=== PATIENT | female | born 1990 | race Two or more races ===

== ENCOUNTER 2024-06-30 10:46 | Inpatient (IN) | payer MEDICAID, SELFPAY ==
[2024-06-30] VITALS (14 sets, daily range): BP systolic 100–129; BP diastolic 55–79; PULSE 77–98; RESP 14–21; TEMP 36.3–37.3; O2SAT 95–100; BMI 34.4
--- NOTE | 2024-06-30 01:27 | PD.LDHP ---
Documentation for date of: 06/30/24 OB Labor/Induct. HPI History of Present Illness : 5 Para: 4 History of sections: Yes (x4) HEMANT: 07/07/24 History of present illness: 33-year-old -0-0-4 at 39 weeks and 0 days, HEMANT 07/07/2024 presents for her scheduled repeat low-transverse section. Patient's current is significant for history of 4 previous sections. Her last delivery was complicated by significant intraperitoneal adhesions with challenging delivery Patient denies any contractions or leakage of fluid and reports good movements Review of Systems Review of Systems Systems Reviewed: All systems reviewed, normal except as documented Past Medical History Surgical History SURGICAL: Positive Section (x4) Meds Home Medications and Allergies Home Medications ?Medication ?Instructions ?Recorded ?Confirmed ?Type ferrous sulfate 325 mg (65 mg 325 mg PO BIDWM #0 tabs 08/07/16 04/09/21 History iron) tablet (Feosol) prenat.vits,maxim,cvq-vyeh-cfrtu 1 tab PO QDAY 04/09/21 04/09/21 History Allergies Allergy/AdvReac Type Severity Reaction Status Date / Time No Known Allergies Allergy Unverified 04/09/21 07:28 OB Exam Constitutional Constitutional: no acute distress Routine HEENT Exam Head: Present normocephalic and atraumatic Eye: Present EOMI and PERRL ENT: Present mucous membranes moist Routine Neck Exam Neck: Present supple and trachea midline Routine Cardiovascular Exam Cardiovascular: Present RRR Routine Abdominal Exam Abdominal: Present soft and normoactive bowel sounds Detailed Labor and Delivery Exam Dilation (cm): 0 Baseline heart rate: 140 monitor accelerations: 15x15 monitor decelerations: None Routine Extremities Exam Extremities: Present full ROM Routine Skin Exam Skin: Present intact, dry and warm Routine Neurological Exam Neurological: Present alert, oriented X3 and CN II-XII intact Routine Psychiatric Exam Psychiatric: Present normal affect and normal thought process OB Assessment & Plan Assessment and Plan (1) Previous delivery affecting : Status: Acute Assessment and plan: Admit to inpatient status for repeat low transverse IV access, CBC, type and cross 2 units, LR at 125, RPR, COVID-19 test GBS negative Ancef 2 g prior to surgery start Potts catheter to drainage SCDs for DVT prophylaxis Anesthesia to preop for spinal anesthesia Scheduled for surgery.
[2024-06-30] MEDS: ceFAZolin/D5W 2 GM IV 2 GM/100 ML BAG IV (12:03)
[2024-06-30] MEDS: RINGERS LACTATED 1000 ML 1,000 ML 100 ML IV (12:03)
[2024-06-30] MEDS: FAMOTIDINE INJ 10 MG/ML VIAL 2 ML 20 MG IV (12:03)
[2024-06-30] MEDS: METOCLOPRAMIDE INJ 5 MG/ML VIAL 2 ML 10 MG IVP (12:06)
[2024-06-30 12:58] LABS: Basophils % (Auto) 0 % (0-2.5); Eosinophils # (Auto) 0.1 Thou/mm3 (0.0-0.5); Eosinophils % (Auto) 1 % (0-10); Hematocrit 35.2 % (36.0-46.0); Hemoglobin 11.8 g/dL (12.0-16.0); Immature Granulocytes % (Auto) 1 % (0-0); Lymphocytes # (Auto) 1.4 Thou/mm3 (1.0-4.8); Lymphocytes % (Auto) 15 % (10-50); Mean Corpuscular HGB Conc 33.5 g/dl (31.0-37.0); Mean Corpuscular Hemoglobin 29.1 pg (25.0-35.0); Mean Corpuscular Volume 87 fL (80-100); Monocytes # (Auto) 0.6 Thou/mm3 (0.0-0.8); Monocytes % (Auto) 6 % (0-12); Neutrophils # (Auto) 7.4 Thou/mm3 (1.8-7.7); Neutrophils % (Auto) 77 % (37-80); Nucleated Red Blood Cell % 0 /100 WBC (0); Platelet Count 288 Thou/mm3 (140-440); RDW Standard Deviation 43.6 fL (36.4-46.3); Red Blood Count 4.05 Miln/mm3 (4.00-5.20); White Blood Count 9.6 Thou/mm3 (3.6-11.0)
[2024-06-30 13:43] LABS: Syphilis Nonreactive (Nonreactive)
--- NOTE | 2024-06-30 14:11 | ESOP_ITS ---
Operative Note - QUALITY CONTROL COORDINATOR Procedure Date of procedure: 06/30/24 Procedure Performed: Repeat low-transverse section with bilateral salpingectomy Indication: 33-year-old G6, P5 with previous x 5 Anesthesia type: Spinal Procedure description: Informed consent was obtained and the patient was taken to the operating room. Identity was confirmed by double identifiers and she was placed on the operating table. Spinal anesthesia was administered and she was positioned in the supine position. The abdomen and perineum were prepped in the usual sterile fashion and a Potts catheter was placed to continuous drainage. Sterile drapes were applied. The incision site was tested for adequacy of anesthesia. A Pfannenstiel skin incision was made with a scalpel and all scar tissue was excised including a band of about 2 cm of skin that included old scars, the incision was now carried to the subcutaneous fat up to the rectus fascia. The rectus fascia was incised on either side of the midline and the incisions were extended bilaterally. The fascia was gently dissected off the ventral surface of the rectus muscle both superiorly and inferiorly. The rectus bellies were gently in the midline and the peritoneum was identified and entered bluntly using the surgeon's finger. Once entry was accomplished multiple bands of agitation were noted both superiorly as well as inferiorly at the bladder reflection. A combination of sharp dissection electrocautery and blunt dissection was used to carefully lysed the scar tissue and create adequate opening to access the anterior surface of the uterus. The peritoneum was now carefully identified and the peritoneal opening was now stretched to create an adequate opening for access to the uterus. Manuel O-ring retractor was placed for adequate visualization. The anterior surface of the uterus was palpated. The bladder reflection was identified and a Mandeep Layne low transverse uterine incision was made in the lower uterine segment taking care to avoid the bladder. Uterine entry was accomplished bluntly and the opening was stretched to create adequate room. The amniotic membranes were now ruptured and clear amniotic fluid was released. The fetus was noted to be in the vertex position. The head was gently elevated out of the maternal pelvis and single loop of nuchal cord was found around the neck. The cord was released and the rest of the shoulders and body were delivered by gentle fundal pressure. Umbilical cord was doubly clamped, divided and the infant was handed over to the waiting team. Cord gas samples were obtained. The placenta was delivered by gentle traction on the umbilical cord. The interior of the uterus was now thoroughly cleaned of all blood and debris and membranes. The hysterotomy angles were grasped by a pair of Allis clamps and the hysterotomy was closed using 1 Monocryl suture in 2 layers. The first layer was used to approximate the muscle in a running locked fashion, the second layer was used to approximate the thickness of the myometrium and uterine serosa in an imbricated manner. Once the repair was completed the hysterotomy was inspected and noted to be adequately hemostatic. Attention was now turned to the right fallopian tube. Allis clamp was used to grasp the tube and a salpingectomy was performed using the Enseal device. The salpingectomy dissection line was inspected and noted to be hemostatic. The same procedure was repeated on the contralateral side. The hysterotomy was once again inspected and hemostasis was noted to be satisfactory. The Manuel retractor was now removed. The peritoneal edges were re approximated. The rectus muscles were re approximated. The rectus fascia was now repaired using PDS strata fix l suture in a running fashion. The subcutaneous layer was now copiously irrigated using warm normal saline. All bleeding points were cauterized using the Bovie. The subcutaneous fat was closed using 3-0 Vicryl. The skin was closed using hussain. The skin was cleaned and a sterile dressing was applied. The patient was now undraped, the abdomen and back were thoroughly cleaned and she was not transferred to the recovery room in a stable and awake condition. The patient tolerated the entire procedure well. No complications were encountered. All instrument, sponge and lap counts were correct x2. Estimated blood loss (ml): 800 Complications: none Surgical staff Operation Date: 06/30/24 12:45 Case Staff HYDROCRANE OPERATOR: Miguel Solo RN First Assistant: Heidy Peraza Diagnosis Discharge Diagnosis (1) Previous delivery affecting : Status: Acute (2) Abdominal adhesions: Status: Acute Problem List Completed Was Problem List Reviewed/Reconciled?: Yes
--- NOTE | 2024-06-30 14:16 | OBDSUM_ITS ---
Data (Montiel) Data Hx Section: Yes : 6 Para: 5 Term: 5 : 0 : 0 Delivery Data (Montiel) Labor Data ROM Date: 06/30/24 ROM Time: 13:38 Rupture Type: AROM Amniotic Fluid: Thin Meconium Delivery Data Labor Onset Stage 1 Date: 06/30/24 Labor Onset Stage 1 Time: 13:38 Labor Onset Stage 2 Date: 06/30/24 Labor Onset Stage 2 Time: 13:38 Delivery Date: 06/30/24 Delivery Time: 13:38 Placenta Delivery Date: 06/30/24 Placenta Delivery Time: 13:38 Delivered by: Dayton Coleman Delivery nurse: Sasha Knox Other staff at delivery: Baby Care/Family And Divorce Legal Assistant Other staff at delivery: Tourist Information Officer Other staff at delivery: RT Other staff at delivery: Scrub Other staff at delivery: Tamanna Thomas Other staff at delivery: Heidy Peraza Other staff at delivery: cielo Other staff at delivery: caroandrea Delivery Method Delivery: Delivery Type: Repeat Anesthesia Type Primary Anesthesia: Spinal Data (Montiel) [place] Data Infant Gender: Male Infant Weight Grams: 3725 1 Minute Total: 8 5 Minute Total: 9
[2024-06-30] MEDS: HYDROmorphone INJ 2 MG/ML VIAL 0.4 MG IV (15:17)
[2024-06-30] MEDS: ACETAMINOPHEN IVPB 1,000 MG/100 ML VIAL 250 MG IV (15:18)
[2024-06-30] MEDS: OXYTOCIN in NS 20 units 20 UNIT/1,000 ML BAG 125 UNIT IV (16:52)
[2024-06-30] MEDS: KETOROLAC INJ 30 MG/ML VIAL IVP (19:22)
[2024-07-01] MEDS: ACETAMINOPHEN IVPB 1,000 MG/100 ML VIAL 250 MG IV ×2 (01:13→07:32)
[2024-07-01] MEDS: KETOROLAC INJ 30 MG/ML VIAL IVP (01:58)
[2024-07-01 03:00] VITALS: BP 105/66; PULSE 91; RESP 18; TEMP 37.2; O2SAT 97
[2024-07-01 03:32] LABS: Basophils % (Auto) 0 % (0-2.5); Eosinophils # (Auto) 0.1 Thou/mm3 (0.0-0.5); Eosinophils % (Auto) 1 % (0-10); Hematocrit 31.8 % (36.0-46.0); Hemoglobin 10.7 g/dL (12.0-16.0); Immature Granulocytes % (Auto) 1 % (0-0); Immature Granulocytes Auto 0.07 Thou/mm3 (0.00-0.00); Lymphocytes # (Auto) 1.2 Thou/mm3 (1.0-4.8); Lymphocytes % (Auto) 12 % (10-50); Mean Corpuscular HGB Conc 33.6 g/dl (31.0-37.0); Mean Corpuscular Hemoglobin 29.1 pg (25.0-35.0); Mean Corpuscular Volume 86 fL (80-100); Monocytes # (Auto) 0.7 Thou/mm3 (0.0-0.8); Monocytes % (Auto) 7 % (0-12); Neutrophils # (Auto) 8.5 Thou/mm3 (1.8-7.7); Neutrophils % (Auto) 80 % (37-80); Nucleated Red Blood Cell % 0 /100 WBC (0); Platelet Count 264 Thou/mm3 (140-440); RDW Standard Deviation 43.2 fL (36.4-46.3); Red Blood Count 3.68 Miln/mm3 (4.00-5.20); White Blood Count 10.7 Thou/mm3 (3.6-11.0)
[2024-07-01] MEDS: RINGERS LACTATED 1000 ML 1,000 ML 125 ML IV (04:20)
[2024-07-01 08:50] VITALS: BP 100/64; PULSE 90; RESP 17; TEMP 36.4; O2SAT 96
[2024-07-01] MEDS: DOCUSATE SOD 100 MG CAPSULE PO (09:34)
--- NOTE | 2024-07-01 10:05 | PD.LDPPPRG ---
Subjective Subjective Interval history: POD#1 doing well passed gas ambulating no dizziness minimal vaginal bleeding trying to breast feed pain managed appropriately Exam Vital Signs Temp Pulse Resp BP Pulse Ox O2 Del Method 98.4 F 98 17 100/70 96 Room Air 07/01/24 12:08 07/01/24 12:08 07/01/24 12:08 07/01/24 12:08 07/01/24 12:08 07/01/24 12:08 Narrative Exam typical post op exam Incision C.D and intact appropriate tenderness passing gas, just started has some pain on R side but abdomen is soft and without any rebound or rigidity minimal vaginal bleeding Constitutional Constitutional: no acute distress Routine HEENT Exam Head: Present normocephalic and atraumatic Eye: Present EOMI and PERRL ENT: Present mucous membranes moist Routine Neck Exam Neck: Present supple and trachea midline Routine Respiratory Exam Respiratory: Present chest non-tender, lungs clear, normal breath sounds and no resp distress Routine Cardiovascular Exam Cardiovascular: Present RRR Routine Abdominal Exam Abdominal: Present soft and normoactive bowel sounds Comments: Incision, C,D and intact with appropriate tenderness no fundal tenderness Routine Extremities Exam Extremities: Present full ROM Comments: no calf tenderness Routine Skin Exam Skin: Present intact, dry and warm Routine Neurological Exam Neurological: Present alert, oriented X3 and CN II-XII intact Routine Psychiatric Exam Psychiatric: Present normal affect and normal thought process Objective Labs 07/01/24 03:10 Labs: Laboratory Results - last 24 hr 07/01/24 03:10 WBC 10.7 RBC 3.68 L Hgb 10.7 L Hct 31.8 L MCV 86 MCH 29.1 MCHC 33.6 RDW Std Deviation 43.2 Plt Count 264 Neut % (Auto) 80 Lymph % (Auto) 12 [place] % (Auto) 7 Eos % (Auto) 1 Baso % (Auto) 0 Neut # (Auto) 8.5 H Lymph # (Auto) 1.2 [place] # (Auto) 0.7 Eos # (Auto) 0.1 Baso # (Auto) 0.0 Immature Gran # (Auto) 0.07 H Absolute Nucleated RBC 0.00 Immature Gran % 1 H Nucleated RBC % 0 Impressions Impression: POD #1 , doing well anticipate discharge in am advance diet as tolerated Assessment & Plan Problem List (1) Previous delivery affecting : Status: Acute Assessment and plan: routine care advance diet and possible discharge tomorrow (2) Abdominal adhesions: Status: Acute Assessment and plan: routine post op care Time Spent With Patient Time: Total time spent is greater than 50% in coordination of care (as documented) at patient's floor/unit and/or counseling patient: Time with patient: 25 - 35 minutes
[2024-07-01 12:08] VITALS: BP 100/70; PULSE 98; RESP 17; TEMP 36.9; O2SAT 96
[2024-07-01] MEDS: HYDROcodone/APAP 5/325 TABLET 2 TAB PO (12:25)
[2024-07-01] MEDS: SIMETHICONE 80 MG CHEW PO ×2 (13:48→20:14)
[2024-07-01] MEDS: IBUPROFEN TAB 400 MG TABLET 800 MG PO (17:47)
[2024-07-01 20:10] VITALS: BP 104/63; PULSE 84; RESP 20; TEMP 36.7; O2SAT 97
[2024-07-01] MEDS: Milk Of Magnesia Susp 30 ML UDC PO (20:14)
[2024-07-02] MEDS: HYDROcodone/APAP 5/325 TABLET 2 TAB PO (01:30)
[2024-07-02 05:36] VITALS: BP 109/68; PULSE 83; RESP 18; TEMP 36.8; O2SAT 96
[2024-07-02] MEDS: IBUPROFEN TAB 400 MG TABLET 800 MG PO (05:49)
[2024-07-02 07:41] VITALS: BP 96/59; PULSE 84; RESP 17; TEMP 37.1
[2024-07-02] MEDS: SIMETHICONE 80 MG CHEW PO (08:21)
[2024-07-02] MEDS: HYDROcodone/APAP 5/325 TABLET 1 TAB PO (08:21)
[2024-07-02] MEDS: DOCUSATE SOD 100 MG CAPSULE PO (08:21)
--- NOTE | 2024-07-02 09:30 | PD.LDPPPRG ---
Subjective Subjective Interval history: Delivery type: Patient doing well this morning. No acute complaints. Ambulating, tolerating p.o. and voiding without difficulty. HTN/Pre-Eclampsia screen: No chest pain, shortness of breath, headache, visual changes, epigastric or right upper quadrant pain. Breast-feeding, lochia diminishing. Bowel: Flatus+/ BM+ Exam Vital Signs Temp Pulse Resp BP Pulse Ox O2 Del Method 98.7 F 84 17 96/59 L 96 Room Air 07/02/24 07:41 07/02/24 07:41 07/02/24 07:41 07/02/24 07:41 07/02/24 05:36 07/02/24 07:41 Constitutional Constitutional: no acute distress Routine HEENT Exam Head: Present normocephalic and atraumatic Eye: Present EOMI and PERRL ENT: Present mucous membranes moist Routine Neck Exam Neck: Present supple and trachea midline Routine Respiratory Exam Respiratory: Present chest non-tender, lungs clear, normal breath sounds and no resp distress Routine Cardiovascular Exam Cardiovascular: Present RRR Routine Abdominal Exam Abdominal: Present soft and normoactive bowel sounds Routine Extremities Exam Extremities: Present full ROM Routine Skin Exam Skin: Present intact, dry and warm Routine Neurological Exam Neurological: Present alert, oriented X3 and CN II-XII intact Routine Psychiatric Exam Psychiatric: Present normal affect and normal thought process Objective Labs 07/01/24 03:10 Assessment & Plan Problem List (1) Previous delivery affecting : Status: Acute (2) Abdominal adhesions: Status: Acute (3) S/P repeat low transverse : Status: Acute Assessment and plan: PPD/POD#2 1. Continue routine care 2. Transition to PO meds. 3. Encourage to ambulate/ breast-feed 4. Anticipate discharge home today. Time Spent With Patient Time: Total time spent is greater than 50% in coordination of care (as documented) at patient's floor/unit and/or counseling patient:
--- NOTE | 2024-07-02 09:31 | ESDS_ITS ---
DS: Providers Provider Date of admission: 06/30/24 10:46 Primary care physician: Camden Shafer MD Admitting Provider: Dayton Coleman MD Attending Provider on Admission: Dayton Coleman MD Consults: 06/30/24 18:59 Referral Routine Comment: Attending Provider on DC: Dayton Coleman MD Discharging Provider: Dayton Coleman MD DS: Diagnosis Discharge Diagnosis (1) Previous delivery affecting : Status: Acute (2) S/P repeat low transverse : Status: Acute (3) Abdominal adhesions: Status: Acute Problem List Completed Was Problem List Reviewed/Reconciled?: Yes Summary/Hosp Course Brief History: 33-year-old -0-0-4 at 39 weeks and 0 days, HEMANT 07/07/2024 presents for her scheduled repeat low-transverse section. Patient's current is significant for history of 4 previous sections. Her last delivery was complicated by significant intraperitoneal adhesions with challenging delivery Patient denies any contractions or leakage of fluid and reports good movements Peripartum Data Procedures: Procedures Operation Date: 06/30/24 12:45 Actual Procedure Side Surgeon p w/tubal OB Dayton Coleman MD Time Spent with Patient Time attestation: Total time spent providing and/or coordinating discharge services: Exam Vital Signs Temp Pulse Resp BP Pulse Ox O2 Del Method 98.7 F 84 17 96/59 L 96 Room Air 07/02/24 07:41 07/02/24 07:41 07/02/24 07:41 07/02/24 07:41 07/02/24 05:36 07/02/24 07:41 Discharge Plan Plan Patient Disposition: HOME (Self Care) Patient condition on transfer: Stable Prescriptions/Referrals Prescriptions/Med Rec: New hydrocodone-acetaminophen 5-325 mg Tablet 1 tab PO Q6HR MDD 4 PRN (Reason: Patient rated pain 9 to 10) 5 Days Qty: 20 0RF docusate sodium 100 mg Capsule 100 mg PO QDAY 30 Days Qty: 30 0RF ibuprofen 400 mg Tablet 800 mg PO Q8HR PRN (Reason: Pain Scale 4-6 (Moderate) 10 Days Qty: 40 0RF Continued ferrous sulfate [Feosol] 1 TAB tablet 325 mg PO BIDWM Qty: 0 prenat.vits,maxim,[id number]-whwqg Tablet 1 tab PO QDAY Referrals: Camden Shafer MD [Primary Care Provider] - aDyton Coelman MD [Physician] - Patient/Caregiver Discharge Instructions Meds to Beds: Yes Discharge Activity: activity as tolerated Education Materials: : Caring for Yourself, C Section Dc Print Language: Barb[place] Activity Restrictions/Additional Instructions: visita al consultorio en phil semana para el cuidado de la incisi?n Stand Alone Forms: Alessandra Award Info., Patient Portal Info Letter, DC from Surgery Vaccines Vaccines Given During Stay: MMR Discharge Order Discharge Orders: Discharge (Routine); Ordered 07/02/24 Ordered By: Dayton Coleman Planned Discharge Date 07/02/24
[2024-07-02] MEDS: MEASLES, MUMPS & RUBELLA VACC 0.5 ML VIAL SCi (10:05)
[2024-07-02] MEDS: LACTULOSE SYRUP 20 GM/30 ML UDC PO (10:05)
== END 2024-07-02 11:56 | disposition home or self-care (01) | DRG 539 ==
LOC: S4SX 12:43 → S4NX 13:10
PROVIDERS: Admitting Provider Obstetrics & Gynecology; PCP Family Medicine; Visit Provider Obstetrics & Gynecology
PROC: 0UL70ZZ Occlusion of Bilateral Fallopian Tubes, Open Approach (ICD-10-PCS; CPT 59514; principal; 2024-06-30 12:30)
DX: O34.211 Maternal care for low transverse scar from previous cesarean delivery (principal); O69.81X0 Labor and delivery complicated by cord around neck, without compression, not applicable or unspecified; O77.0 Labor and delivery complicated by meconium in amniotic fluid; Z37.0 Single live birth; Z3A.39 39 weeks gestation of pregnancy; Z30.2 Encounter for sterilization; Z23 Encounter for immunization
CPT/HCPCS: 36415; 85025; 86780; 86850; 86900; 86901; 86923; 90707; A4649; J0131; J0689; J1885; J2210; J2274; J2590; J2765; J3010; J3490; J7120; A9270; J0690; J2270